=== PATIENT | male | born 1985 | race American Indian/Alaskan Native ===

== ENCOUNTER 2017-03-12 20:30 | Emergency (ER) | payer SELFPAY ==
[2017-03-12 21:12] VITALS: BMI 25.8
[2017-03-12 21:17] VITALS: O2SAT 99
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
[2017-03-13 00:34] VITALS: BP 132/78; PULSE 72; RESP 16; TEMP 100.3
== END 2017-03-13 00:32 | disposition home or self-care (01) ==
LOC: ED 20:30
DX: J11.1 Influenza due to unidentified influenza virus with other respiratory manifestations (principal); F17.210 Nicotine dependence, cigarettes, uncomplicated